=== PATIENT | female | born 1940 | race Asian ===

== ENCOUNTER 2016-11-21 10:01 | Outpatient (CLI) | payer MEDICARE | END 2016-11-21 20:36 | disposition home or self-care (01) | LOC: SMA 10:01 | PROVIDERS: ATTEND Family Medicine | DX: R92.8 Other abnormal and inconclusive findings on diagnostic imaging of breast (principal); M81.8 Other osteoporosis without current pathological fracture; R97.8 Other abnormal tumor markers | CPT/HCPCS: G0206 ==

== ENCOUNTER 2017-11-20 09:26 | Outpatient (CLI) | payer OTHER | END 2017-11-20 19:59 | disposition home or self-care (01) | LOC: SMA 09:26 | PROVIDERS: ATTEND Internal Medicine Hospice and Palliative Medicine | DX: R92.1 Mammographic calcification found on diagnostic imaging of breast (principal); Z85.3 Personal history of malignant neoplasm of breast; Z90.11 Acquired absence of right breast and nipple | CPT/HCPCS: 77065 ==